=== PATIENT | female | born 1975 | race African-American/Black ===

== ENCOUNTER 2017-11-16 08:08 | Emergency (ER) | payer MEDICAID, OTHER ==
[~2017-11-16] VITALS: Ht 167.6 cm; Wt 78.0 kg
[2017-11-16 08:46] VITALS: BP 138/92
== END 2017-11-16 09:07 | disposition home or self-care (01) ==
LOC: ER 08:08
DX: I10 Essential (primary) hypertension (principal)

== ENCOUNTER 2018-06-22 15:31 | Emergency (ER) | payer MEDICAID ==
[~2018-06-22] VITALS: Ht 167.6 cm; Wt 81.6 kg
[2018-06-22 16:08] VITALS: BP 153/108
[2018-06-22] MEDS ORDERED: ACETAMINOPHEN 500 MG TAB PO ONE (17:15)
[2018-06-22] MEDS ORDERED: cefTRIAXone SOD 1,000 MG VL IM ONE (17:15)
== END 2018-06-22 17:53 | disposition home or self-care (01) ==
LOC: ER 15:33
DX: H66.92 Otitis media, unspecified, left ear (principal); J03.90 Acute tonsillitis, unspecified; I10 Essential (primary) hypertension
CPT/HCPCS: 71046; 96372; 99283; J0696

== ENCOUNTER 2018-06-25 16:20 | Emergency (ER) | payer MEDICAID ==
[~2018-06-25] VITALS: Ht 170.2 cm; Wt 81.6 kg
[2018-06-25 16:42] VITALS: BP 126/95
[2018-06-25 17:52] LABS: Urine Bacteria FEW /hpf (None Seen); Urine Blood 1+ /uL (Negative); Urine Hyaline Cast FEW /lpf (0 - 2); Urine Specific Gravity 1.015 (1.001-1.035); Urine WBC 2 /hpf (0 - 5)
[2018-06-25] MEDS ORDERED: ONDANSETRON ODT 4 MG TAB PO ONE (20:30)
[2018-06-25] MEDS ORDERED: IBUPROFEN 800 MG TAB PO ONE (22:00)
== END 2018-06-25 22:08 | disposition home or self-care (01) ==
LOC: ER 16:38
DX: J11.1 Influenza due to unidentified influenza virus with other respiratory manifestations (principal)
CPT/HCPCS: 71045; 81001; 81025; 99284; Q0162

== ENCOUNTER 2019-01-10 09:56 | Emergency (ER) | payer MEDICAID ==
[~2019-01-10] VITALS: Ht 167.6 cm; Wt 79.8 kg
[2019-01-10 10:20] VITALS: BP 154/111
[2019-01-10] MEDS ORDERED: KETOROLAC TROMETH 60MG/2ML VIAL IM ONE (11:00)
== END 2019-01-10 11:36 | disposition home or self-care (01) ==
LOC: ER 10:00
DX: S86.912A Strain of unspecified muscle(s) and tendon(s) at lower leg level, left leg, initial encounter (principal); I10 Essential (primary) hypertension; W19.XXXA Unspecified fall, initial encounter; Y93.89 Activity, other specified; Y92.89 Other specified places as the place of occurrence of the external cause; Y99.8 Other external cause status
CPT/HCPCS: 96372; 99283; J1885

== ENCOUNTER → 2020-01-24 | Outpatient (CLI) | payer OTHER | END | disposition home or self-care (01) | LOC: LAB 12:21 | PROVIDERS: ATTEND Nurse Practitioner Family | DX: Z03.818 Encounter for observation for suspected exposure to other biological agents ruled out (principal) ==

== ENCOUNTER → 2020-06-07 | Outpatient (CLI) | payer OTHER | END | disposition home or self-care (01) | LOC: LAB 11:44 | PROVIDERS: ATTEND Nurse Practitioner Family | DX: Z20.828 Contact with and (suspected) exposure to other viral communicable diseases (principal) | CPT/HCPCS: C9803; U0003 ==

== ENCOUNTER → 2020-06-18 | Outpatient (CLI) | payer OTHER | END | disposition home or self-care (01) | LOC: LAB 16:55 | PROVIDERS: ATTEND Nurse Practitioner Family | DX: Z20.828 Contact with and (suspected) exposure to other viral communicable diseases (principal) | CPT/HCPCS: C9803; U0003 ==

== ENCOUNTER 2021-03-13 00:30 | Inpatient (IN) | payer BC, OTHER ==
[2021-03-13] VITALS (63 sets, daily range): BP systolic 108–193; BP diastolic 75–180
[~2021-03-13] VITALS: Ht 172.7 cm; Wt 78.9 kg
[2021-03-13] MEDS ORDERED: SUCCINYLCHOLINE CHLORIDE 20 MG/ML 10ML VIAL IV ONE (01:15)
[2021-03-13] MEDS ORDERED: ETOMIDATE (2MG/ML) 20ML VIAL IV ONE (01:15)
[2021-03-13 01:26] LABS: Eosinophils # (auto) 0 10 ^3/uL (0-0.8); Lymphocytes # (auto) 2.3 10 ^3/uL (0.4-5.4); Lymphocytes % (auto) 32.6 % (10.0-50.0); Monocytes # (auto) 0.5 10 ^3/uL (0-1.3)
[2021-03-13 01:28] LABS: Basophils # (auto) 0 10 ^3/uL (0-0.2); Basophils % (auto) 0.4 % (0.0-2.0); Eosinophils % (auto) 0.3 % (0.0-7.0); Hematocrit 36.5 % (36.0-46.0); Hemoglobin 12.2 g/dL (12.2-16.2); Mean Corpuscular Hemoglobin 25.3 pg (28.0-32.0); Mean Corpuscular Hgb Conc. 33.6 g/dL (32.0-36.0); Mean Corpuscular Volume 75.4 fL (80.0-100.0); Monocytes % (auto) 6.5 % (0.0-12.0); Neutrophils # (auto) 4.2 10 ^3/uL (1.6-8.6); Neutrophils % (auto) 60.2 % (37.0-80.0); Nucleated Red Blood Cells % 0.1 %; Red Blood Cells 4.84 10^6/uL (4.0-5.20); Red Cell Distribution Width 17.9 % (11.8-14.3)
[2021-03-13] MEDS: PROPOFOL 100 ML IV SCH ×4 (01:38→20:54)
[2021-03-13 01:44] LABS: Albumin 3.7 g/dL (3.4-5.0); Calcium 9.1 mg/dL (8.5-10.1); Magnesium 2.6 mg/dL (1.6-2.6); Potassium 3.4 mmol/L (3.5-5.1)
[2021-03-13 01:46] LABS: BUN/Creatinine Ratio 17.8
[2021-03-13 01:49] LABS: Bilirubin, Total 0.2 mg/dL (0.2-1.0); Total Protein 8.2 g/dL (6.4-8.2)
[2021-03-13 01:50] LABS: Salicylate < 1.7 mg/dL (2.8-20.0)
[2021-03-13 01:54] LABS: Acetaminophen < 2.0 ug/mL (10-30)
[2021-03-13] MEDS ORDERED: ACETAMINOPHEN 650 MG RECT SUPP PR PRN (03:30)
[2021-03-13] MEDS ORDERED: D5W/SOD CHL 0.45% 1,000 ML IV SCH (03:30)
[2021-03-13] MEDS ORDERED: MORPHINE SULFATE INJECTION 2 MG/ML SYRG IV PRN (03:30)
[2021-03-13] MEDS ORDERED: ONDANSETRON HCL 4 MG/2 ML VIAL IV PRN (03:30)
[2021-03-13] MEDS ORDERED: NITROGLYCERIN 0.4 MG SL TAB SL PRN (03:30)
[2021-03-13] MEDS ORDERED: POTASSIUM CHL 20MEQ/100ML 100 ML IV ONE (03:30)
[2021-03-13] MEDS ORDERED: MIDAZOLAM DRIP 50 mg/50mL 50 ML IV ONE (05:18)
[2021-03-13] MEDS ORDERED: THIAMINE 100mg/ml INJ (200mg/2ml VIAL) ONE (05:29)
[2021-03-13] MEDS: MIDAZOLAM DRIP 50 mg/50mL 50 ML IV SCH ×2 (07:22→22:20)
[2021-03-13 07:43] LABS: Urine Bacteria NONE SEEN /hpf (None Seen); Urine Blood Negative /uL (Negative); Urine Mucus FEW (None Seen); Urine Specific Gravity 1.017 (1.001-1.035); Urine WBC 2 /hpf (0 - 5)
[2021-03-13 07:43] LABS: Basophils # (auto) 0 10 ^3/uL (0-0.2); Eosinophils # (auto) 0 10 ^3/uL (0-0.8); Monocytes # (auto) 0.9 10 ^3/uL (0-1.3)
[2021-03-13 07:45] LABS: Basophils % (auto) 0.3 % (0.0-2.0); Hematocrit 34.1 % (36.0-46.0); Hemoglobin 11.2 g/dL (12.2-16.2); Lymphocytes # (auto) 0.9 10 ^3/uL (0.4-5.4); Lymphocytes % (auto) 6.9 % (10.0-50.0); Mean Corpuscular Hemoglobin 24.6 pg (28.0-32.0); Mean Corpuscular Hgb Conc. 32.8 g/dL (32.0-36.0); Mean Corpuscular Volume 75.1 fL (80.0-100.0); Monocytes % (auto) 7.1 % (0.0-12.0); Neutrophils # (auto) 10.7 10 ^3/uL (1.6-8.6); Neutrophils % (auto) 85.7 % (37.0-80.0); Red Blood Cells 4.53 10^6/uL (4.0-5.20); Red Cell Distribution Width 17.8 % (11.8-14.3); White Blood Cell 12.4 10^3/uL (4.4-10.8)
[2021-03-13 07:55] LABS: Albumin 3.2 g/dL (3.4-5.0); BUN/Creatinine Ratio 21.8; Calcium 8.3 mg/dL (8.5-10.1)
[2021-03-13 07:58] LABS: Bilirubin, Total 0.2 mg/dL (0.2-1.0); Total Protein 7.3 g/dL (6.4-8.2)
[2021-03-13 08:57] LABS: Alcohol, Urine 46.5 mg/dL (0-10); Barbiturate Scree,Urine NEGATIVE (NEGATIVE); Opiate Scree,Urine NEGATIVE (NEGATIVE); Phencyclidine Screen, Urine NEGATIVE (NEGATIVE)
[2021-03-13 08:58] LABS: Amphetamine Screen, Urine NEGATIVE (NEGATIVE); Benzodiazephine Screen, Urine POSITIVE (NEGATIVE); Cannabinoid Screen, Urine POSITIVE (NEGATIVE); Cocaine Screen, Urine NEGATIVE (NEGATIVE)
[2021-03-13] MEDS: FAMOTIDINE (10MG/ML) 2ML VL IV SCH ×2 (09:19→22:22)
[2021-03-13] MEDS: ENOXAPARIN SOD 40 MG/0.4 ML SYRINGE SC SCH (09:19)
[2021-03-13] MEDS ORDERED: Jevity 1.2 Cal/Fiber 1 Liter GT SCH (12:45)
[2021-03-13] MEDS: SODIUM CHLORIDE 0.9% 1,000 ML IV SCH ×2 (13:50→23:30)
[2021-03-13] MEDS: FOLIC ACID 1 MG, MULTIPLE VITAMIN 10 ML, MAGNESIUM SULF SDV 50% 8 MEQ, THIAMINE INJ 100... INJ SCH ×5 (15:34)
[2021-03-13] MEDS ORDERED: SODIUM BICARBONATE 8.4 % INJ 50ML VIAL IV ONE (21:45)
[2021-03-13] MEDS: hydrALAZINE HCL 20 MG/ML VL IV PRN (23:50)
[2021-03-14] VITALS (106 sets, daily range): BP systolic 125–176; BP diastolic 64–120
[2021-03-14] MEDS: PROPOFOL 100 ML IV SCH ×2 (03:46→10:05)
[2021-03-14 04:32] LABS: Basophils # (auto) 0 10 ^3/uL (0-0.2); Basophils % (auto) 0.3 % (0.0-2.0); Eosinophils # (auto) 0 10 ^3/uL (0-0.8); Hemoglobin 10.8 g/dL (12.2-16.2); Lymphocytes # (auto) 1.2 10 ^3/uL (0.4-5.4); Mean Corpuscular Hemoglobin 24.9 pg (28.0-32.0); Mean Corpuscular Hgb Conc. 32.3 g/dL (32.0-36.0); Monocytes # (auto) 0.8 10 ^3/uL (0-1.3)
[2021-03-14] MEDS: MIDAZOLAM DRIP 50 mg/50mL 50 ML IV SCH ×2 (04:33→10:06)
[2021-03-14 04:34] LABS: Eosinophils % (auto) 0.2 % (0.0-7.0); Hematocrit 33.6 % (36.0-46.0); Lymphocytes % (auto) 13.8 % (10.0-50.0); Mean Corpuscular Volume 77.2 fL (80.0-100.0); Monocytes % (auto) 9.3 % (0.0-12.0); Neutrophils # (auto) 6.8 10 ^3/uL (1.6-8.6); Neutrophils % (auto) 76.4 % (37.0-80.0); Nucleated Red Blood Cells % 0.1 %; Red Blood Cells 4.35 10^6/uL (4.0-5.20); Red Cell Distribution Width 18.7 % (11.8-14.3); White Blood Cell 8.9 10^3/uL (4.4-10.8)
[2021-03-14 04:54] LABS: Potassium 3.9 mmol/L (3.5-5.1)
[2021-03-14 04:58] LABS: Albumin 2.8 g/dL (3.4-5.0); BUN/Creatinine Ratio 15.1; Calcium 8.9 mg/dL (8.5-10.1)
[2021-03-14] MEDS ORDERED: LABETALOL HCL 5 MG/ML 4ML SYRINGE IV ONE (05:00)
[2021-03-14 05:01] LABS: Bilirubin, Total 0.2 mg/dL (0.2-1.0)
[2021-03-14] MEDS ORDERED: LISI40TA11 PO (07:17)
[2021-03-14] MEDS ORDERED: HYDR25TA5 GT (07:18)
[2021-03-14] MEDS: hydrALAZINE HCL 20 MG/ML VL IV PRN (07:39)
[2021-03-14] MEDS: SODIUM CHLORIDE 0.9% 1,000 ML IV SCH ×2 (08:45→10:45)
[2021-03-14] MEDS: ENOXAPARIN SOD 40 MG/0.4 ML SYRINGE SC SCH (10:06)
[2021-03-14] MEDS: FAMOTIDINE (10MG/ML) 2ML VL IV SCH ×2 (10:06→21:16)
[2021-03-14] MEDS ORDERED: POTASSIUM EFFERVESENT TAB 25 MEQ GT ONE (10:45)
[2021-03-14] MEDS: FOLIC ACID 1 MG, MULTIPLE VITAMIN 10 ML, MAGNESIUM SULF SDV 50% 8 MEQ, THIAMINE INJ 100... INJ SCH ×5 (11:18)
[2021-03-15] VITALS (50 sets, daily range): BP systolic 128–179; BP diastolic 84–120
[2021-03-15] MEDS: MIDAZOLAM DRIP 50 mg/50mL 50 ML IV SCH (00:21)
[2021-03-15] MEDS: hydrALAZINE HCL 20 MG/ML VL IV PRN ×2 (00:22→14:57)
[2021-03-15] MEDS: SODIUM CHLORIDE 0.9% 1,000 ML IV SCH (06:45)
[2021-03-15] MEDS ORDERED: FUROSEMIDE 40 MG/4 ML VIAL IV ONE (08:30)
[2021-03-15] MEDS ORDERED: LABETALOL HCL 5 MG/ML 4ML SYRINGE IV ONE (08:30)
[2021-03-15] MEDS: ENOXAPARIN SOD 40 MG/0.4 ML SYRINGE SC SCH (09:49)
[2021-03-15] MEDS: FAMOTIDINE (10MG/ML) 2ML VL IV SCH (09:49)
[2021-03-15] MEDS: ACETAMINOPHEN 650 mg PER 20.3 mL UD PO PRN (14:21)
[2021-03-15] MEDS: HYDROcodone-ACET 5/325MG TAB PO PRN (16:13)
[2021-03-15] MEDS ORDERED: SUMAtriptan SUCCINATE 25 MG TAB PO ONE (20:45)
[2021-03-16] VITALS (11 sets, daily range): BP systolic 138–168; BP diastolic 94–120
[2021-03-16] MEDS: hydrALAZINE HCL 20 MG/ML VL IV PRN ×2 (00:20→16:46)
[2021-03-16] MEDS: HYDROcodone-ACET 5/325MG TAB PO PRN ×2 (04:09→18:31)
[2021-03-16 04:36] LABS: Basophils # (auto) 0 10 ^3/uL (0-0.2); Eosinophils # (auto) 0.1 10 ^3/uL (0-0.8); Hematocrit 35.6 % (36.0-46.0); Lymphocytes # (auto) 1.1 10 ^3/uL (0.4-5.4); Monocytes # (auto) 0.5 10 ^3/uL (0-1.3)
[2021-03-16 04:40] LABS: Basophils % (auto) 0.5 % (0.0-2.0); Eosinophils % (auto) 0.7 % (0.0-7.0); Hemoglobin 12.1 g/dL (12.2-16.2); Lymphocytes % (auto) 12.4 % (10.0-50.0); Mean Corpuscular Hemoglobin 25.8 pg (28.0-32.0); Mean Corpuscular Hgb Conc. 33.9 g/dL (32.0-36.0); Mean Corpuscular Volume 76.2 fL (80.0-100.0); Monocytes % (auto) 6.3 % (0.0-12.0); Neutrophils % (auto) 80.1 % (37.0-80.0); Red Blood Cells 4.67 10^6/uL (4.0-5.20); Red Cell Distribution Width 17.8 % (11.8-14.3); White Blood Cell 8.7 10^3/uL (4.4-10.8)
[2021-03-16 04:43] LABS: Calcium 9.8 mg/dL (8.5-10.1); Potassium 3.6 mmol/L (3.5-5.1)
[2021-03-16 04:45] LABS: BUN/Creatinine Ratio 15.5
[2021-03-16] MEDS ORDERED: guaiFENesin-DM 100/10mg/5ml SYR PO PRN (05:15)
[2021-03-16] MEDS ORDERED: dilTIAZem 25 MG/5 ML VIAL IV ONE (05:15)
[2021-03-16] MEDS ORDERED: LORazepam 0.5 MG TAB PO PRN (08:30)
[2021-03-16] MEDS: ENOXAPARIN SOD 40 MG/0.4 ML SYRINGE SC SCH (09:03)
[2021-03-16] MEDS: LISINOPRIL 20 MG TAB PO SCH (09:03)
[2021-03-16] MEDS: ACETAMINOPHEN 650 mg PER 20.3 mL UD PO PRN (09:04)
[2021-03-16] MEDS ORDERED: ATENOLOL 50 MG TAB PO SCH (10:00)
[2021-03-16] MEDS ORDERED: HCTZ 25 MG TAB PO SCH ×2 (10:00→22:00)
[2021-03-16] MEDS: ATENOLOL 25 MG TAB PO SCH ×2 (22:00→23:16)
[2021-03-17 05:00] VITALS: BP 136/95
[2021-03-17 06:51] LABS: Potassium 3.4 mmol/L (3.5-5.1)
[2021-03-17 06:57] LABS: BUN/Creatinine Ratio 22.1; Calcium 10.3 mg/dL (8.5-10.1)
[2021-03-17] MEDS: LISINOPRIL 20 MG TAB PO SCH (08:29)
[2021-03-17 09:00] VITALS: BP 149/104
[2021-03-17] MEDS: ENOXAPARIN SOD 40 MG/0.4 ML SYRINGE SC SCH (09:51)
[2021-03-17] MEDS ORDERED: ATENOLOL 25 MG TAB PO SCH ×2 (10:00)
[2021-03-17] MEDS ORDERED: amLODIPine BESYLATE 5 MG TAB PO SCH (10:00)
[2021-03-17] MEDS ORDERED: AMLO-496 PO (11:34)
[2021-03-17 12:52] VITALS: BP 145/104
[2021-03-17] MEDS ORDERED: ATEN25TA PO (16:13)
[2021-03-17] MEDS ORDERED: MULT-1018 PO (16:16)
[2021-03-17 16:30] VITALS: BP 149/104
== END 2021-03-17 17:00 | disposition home or self-care (01) | DRG 917 ==
LOC: EEVIPCON 00:30 → EDBD 00:30 → ER 00:30 → OVERFLOW 03:17 → ICU WEST 10:51 → TELE-CENTR 03-16 06:50
PROVIDERS: ADMIT Nurse Practitioner Family; ATTEND Internal Medicine
PROC: 5A1945Z Respiratory Ventilation, 24-96 Consecutive Hours (ICD-10-PCS; principal; 2021-03-13)
PROC: 0BH17EZ Insertion of Endotracheal Airway into Trachea, Via Natural or Artificial Opening (ICD-10-PCS; 2021-03-13)
DX: T43.012A Poisoning by tricyclic antidepressants, intentional self-harm, initial encounter (principal); G92 Toxic encephalopathy; J96.00 Acute respiratory failure, unspecified whether with hypoxia or hypercapnia; Z99.11 Dependence on respirator [ventilator] status; Z20.822 Contact with and (suspected) exposure to COVID-19; D50.9 Iron deficiency anemia, unspecified; F10.129 Alcohol abuse with intoxication, unspecified; F32.9 Major depressive disorder, single episode, unspecified; I10 Essential (primary) hypertension; F41.9 Anxiety disorder, unspecified; Z79.899 Other long term (current) drug therapy; Y92.89 Other specified places as the place of occurrence of the external cause
CPT/HCPCS: 31500; 36415; 36600; 71045; 80048; 80053; 80307; 80320; 80329; 81001; 82805; 83036; 83735; 84702; 85025; 87070; 87081; 87205; 87426; 93005; 93975; 94002; 94003; 99291; G0378; J0330; J2250; J2704; J3480; J3490

== ENCOUNTER 2022-06-18 23:48 | Inpatient (IN) | payer BC ==
[~2022-06-18] VITALS: Ht 167.6 cm; Wt 80.6 kg
[~2022-06-18 23:48] MED LIST: AMLO-496 PO; ATEN25TA PO; HYDR25TA5 GT; LISI40TA11 PO; MULT-1018 PO
[2022-06-19 04:44] LABS: Urine Blood Negative /uL (Negative); Urine Specific Gravity 1.008 (1.001-1.035)
[2022-06-19] MEDS ORDERED: ACETAMINOPHEN 325 MG TAB PO ONE (10:00)
[2022-06-19] MEDS ORDERED: SODIUM CHLORIDE 0.9% 1,000 ML IV ONE (10:00)
[2022-06-19 10:32] LABS: Basophils # (auto) 0 10 ^3/uL (0-0.2); Basophils % (auto) 0.5 % (0.0-2.0); Eosinophils # (auto) 0 10 ^3/uL (0-0.8); Hematocrit 36.1 % (36.0-46.0); Lymphocytes # (auto) 1.5 10 ^3/uL (0.4-5.4); Neutrophils # (auto) 3.5 10 ^3/uL (1.6-8.6); Neutrophils % (auto) 59.5 % (37.0-80.0); White Blood Cell 5.9 10^3/uL (4.4-10.8)
[2022-06-19 10:34] LABS: Eosinophils % (auto) 0.3 % (0.0-7.0); Hemoglobin 11.8 g/dL (12.2-16.2); Lymphocytes % (auto) 25.3 % (10.0-50.0); Mean Corpuscular Hemoglobin 22.6 pg (28.0-32.0); Mean Corpuscular Hgb Conc. 32.6 g/dL (32.0-36.0); Mean Corpuscular Volume 69.5 fL (80.0-100.0); Monocytes # (auto) 0.8 10 ^3/uL (0-1.3); Monocytes % (auto) 14.4 % (0.0-12.0); Nucleated Red Blood Cells % 0.2 %; Red Cell Distribution Width 17.1 % (11.8-14.3)
[2022-06-19 10:53] LABS: Albumin 3.8 g/dL (3.4-5.0); Calcium 9.6 mg/dL (8.5-10.1); Magnesium 2.7 mg/dL (1.6-2.6); Potassium 4.1 mmol/L (3.5-5.1)
[2022-06-19 10:57] LABS: BUN/Creatinine Ratio 16.8; Bilirubin, Total 0.6 mg/dL (0.2-1.0); Total Protein 8.2 g/dL (6.4-8.2)
[2022-06-19] MEDS ORDERED: ASPirin 81 mg TAB PO ONE (17:15)
[2022-06-19] MEDS ORDERED: ACETAMINOPHEN 325 MG TAB PO PRN (18:00)
[2022-06-19] MEDS ORDERED: TEMAZEPAM 15 MG CAP PO PRN (18:00)
[2022-06-19] MEDS ORDERED: MORPHINE SULFATE INJ 2 MG/ml SYRG IV PRN (18:00)
[2022-06-19] MEDS ORDERED: ONDANSETRON HCL 4 MG/2 ML VIAL IV PRN (18:00)
[2022-06-19] MEDS ORDERED: NITROGLYCERIN 0.4 MG SL TAB SL PRN (18:00)
[2022-06-19] MEDS: ATENOLOL 25 MG TAB PO SCH (22:00)
[2022-06-20 05:54] LABS: Basophils # (auto) 0 10 ^3/uL (0-0.2); Basophils % (auto) 0.7 % (0.0-2.0); Eosinophils # (auto) 0 10 ^3/uL (0-0.8); Eosinophils % (auto) 0.3 % (0.0-7.0); Hemoglobin 10.6 g/dL (12.2-16.2); Lymphocytes # (auto) 1.1 10 ^3/uL (0.4-5.4); Lymphocytes % (auto) 23.8 % (10.0-50.0); Mean Corpuscular Hemoglobin 22.7 pg (28.0-32.0); Mean Corpuscular Volume 68.6 fL (80.0-100.0); Monocytes # (auto) 0.5 10 ^3/uL (0-1.3); Monocytes % (auto) 10.8 % (0.0-12.0); Neutrophils # (auto) 2.9 10 ^3/uL (1.6-8.6); Neutrophils % (auto) 64.4 % (37.0-80.0); Red Blood Cells 4.67 10^6/uL (4.0-5.20); White Blood Cell 4.5 10^3/uL (4.4-10.8)
[2022-06-20 05:58] LABS: BUN/Creatinine Ratio 19.5; Calcium 9.1 mg/dL (8.5-10.1); Potassium 3.8 mmol/L (3.5-5.1)
[2022-06-20] MEDS: ATENOLOL 25 MG TAB PO SCH ×2 (06:27→10:49)
[2022-06-20 09:18] VITALS: BP 127/94
[2022-06-20] MEDS ORDERED: HCTZ 25 MG TAB PO SCH (10:00)
[2022-06-20] MEDS ORDERED: ENOXAPARIN SOD 40 MG/0.4 ML SYRINGE SC SCH (10:00)
[2022-06-20] MEDS ORDERED: amLODIPine BESYLATE 5 MG TAB PO SCH (10:00)
[2022-06-20] MEDS ORDERED: ASPirin 81 mg TAB PO SCH (10:00)
[2022-06-20 10:01] VITALS: BP 127/94
[2022-06-20 12:42] VITALS: BP 129/91
[2022-06-20 13:09] LABS: Free T4 (Free Thyroxine) 1.13 ng/dL (0.89-1.76)
[2022-06-20] MEDS ORDERED: MULT-1018 PO (13:17)
[2022-06-20 14:10] VITALS: BP 127/94
== END 2022-06-20 16:26 | disposition home or self-care (01) | DRG 312 ==
LOC: ER 23:48 → TELE 06-19 17:54 → TELE-WESTW 06-20 09:14
PROVIDERS: ADMIT Nurse Practitioner; ATTEND Internal Medicine
DX: R55 Syncope and collapse (principal); B34.9 Viral infection, unspecified; E11.9 Type 2 diabetes mellitus without complications; I10 Essential (primary) hypertension; R07.89 Other chest pain; Z20.822 Contact with and (suspected) exposure to COVID-19; Z80.0 Family history of malignant neoplasm of digestive organs; Z83.3 Family history of diabetes mellitus
CPT/HCPCS: 36415; 71046; 71275; 80048; 80053; 81001; 81025; 82607; 83735; 84439; 84443; 84484; 85025; 85379; 87426; 87804; 93005; 93306; 93886; 96360; G0378

== ENCOUNTER 2022-06-26 08:00 | Emergency (ER) | payer BC, MEDICAID ==
[~2022-06-26] VITALS: Ht 167.6 cm; Wt 72.0 kg
[2022-06-26 08:21] VITALS: BP 170/126
[2022-06-26] MEDS ORDERED: ACETAMINOPHEN 325 MG TAB PO ONE (09:00)
[2022-06-26] MEDS ORDERED: diphenhdrAMINE HCL 50 MG/1 ML VL IV ONE (09:00)
[2022-06-26] MEDS ORDERED: METOCLOPRAMIDE HCL 5MG/ml INJ 2ml VIAL IV ONE (09:00)
[2022-06-26] MEDS ORDERED: DexAMETHasone SOD PHOS 10MG/1ML VIAL INJ IV ONE (09:00)
[2022-06-26] MEDS ORDERED: MAGNESIUM SULFATE 1GM/100ML 100 ML IV ONE (09:00)
[2022-06-26] MEDS ORDERED: HYDROcodone-ACET 5/325MG TAB PO ONE (14:00)
[2022-06-26] MEDS ORDERED: KETOROLAC TROMETH 30 MG/ML 1ML VIAL IV ONE (14:00)
[2022-06-26] MEDS ORDERED: SUMAtriptan SUCCINATE 6 MG/0.5 ML VL SC ONE (14:00)
[2022-06-26] MEDS ORDERED: LISINOPRIL 20 MG TAB PO ONE (14:00)
[2022-06-26] MEDS ORDERED: amLODIPine BESYLATE 5 MG TAB PO ONE (14:00)
[2022-06-26] MEDS ORDERED: SODIUM CHLORIDE 0.9% 1,000 ML IV ONE (14:00)
== END 2022-06-26 17:39 | disposition home or self-care (01) ==
LOC: EDBD 08:00 → EEVIPCON 08:00 → ER 08:00
DX: G43.909 Migraine, unspecified, not intractable, without status migrainosus (principal); I10 Essential (primary) hypertension
CPT/HCPCS: 70450; 81025; 93005; 96365; 96375; 99285; J1100; J1200; J2765; J3475

== ENCOUNTER 2023-03-13 11:46 | Inpatient (IN) | payer BC, MEDICAID ==
[~2023-03-13] VITALS: Ht 167.6 cm; Wt 85.4 kg
[~2023-03-13 11:46] MED LIST changes: -AMLO-496 PO; +AMLO1TAB23 PO; -LISI40TA11 PO; +LISI40TA16 PO
[2023-03-13 12:08] LABS: Basophils # (auto) 0 10 ^3/uL (0-0.2); Basophils % (auto) 0.3 % (0.0-2.0); Eosinophils # (auto) 0 10 ^3/uL (0-0.8); Lymphocytes # (auto) 0.7 10 ^3/uL (0.4-5.4); Lymphocytes % (auto) 8.9 % (10.0-50.0); Mean Corpuscular Hgb Conc. 32.3 g/dL (32.0-36.0); Monocytes # (auto) 0.6 10 ^3/uL (0-1.3)
[2023-03-13 12:11] LABS: Eosinophils % (auto) 0.1 % (0.0-7.0); Hematocrit 36.5 % (36.0-46.0); Hemoglobin 11.8 g/dL (12.2-16.2); Mean Corpuscular Hemoglobin 21.7 pg (28.0-32.0); Mean Corpuscular Volume 67.4 fL (80.0-100.0); Monocytes % (auto) 8.1 % (0.0-12.0); Neutrophils # (auto) 6.3 10 ^3/uL (1.6-8.6); Neutrophils % (auto) 82.6 % (37.0-80.0); Red Blood Cells 5.42 10^6/uL (4.0-5.20); White Blood Cell 7.6 10^3/uL (4.4-10.8)
[2023-03-13] MEDS ORDERED: ASPirin 81 mg TAB PO ONE ×2 (12:15→13:30)
[2023-03-13 12:30] LABS: INR 1.05 (0.9-1.15); Partial Thromboplastin Time 30.2 SEC (24.5-34.5)
[2023-03-13 12:43] LABS: Urine Bacteria FEW /hpf (None Seen); Urine Blood 3+ /uL (Negative); Urine Clarity HAZY (Clear); Urine Color PINK (Yellow); Urine Hyaline Cast MOD /lpf (0 - 2); Urine Mucus FEW (None Seen); Urine Protein, UAD 2+ (Negative); Urine Specific Gravity 1.027 (1.001-1.035); Urine WBC 30 /hpf (0 - 5)
[2023-03-13 12:54] LABS: Alanine Aminotransferase 54 U/L (7-40); Alkaline Phosphatase 105 U/L (46-116); Anion Gap 10.2 (5-15); Blood Urea Nitrogen 20 mg/dL (9-23); Calcium 9.6 mg/dL (8.5-10.1); Carbon Dioxide 22.8 mmol/L (20-30); Chloride 102 mmol/L (98-107); Glucose 95 mg/dL (74-106); Magnesium 2.2 mg/dL (1.6-2.6); Potassium 3.2 mmol/L (3.5-5.1); Sodium 135 mmol/L (136-145)
[2023-03-13 12:55] LABS: Albumin 4.5 g/dL (3.2-4.8); Aspartate Aminotransferase 54 U/L (13-40); BUN/Creatinine Ratio 13.7 (10.0-20.0); Bilirubin, Total 0.8 mg/dL (0.2-1.0); Total Protein 8.1 g/dL (5.7-8.2)
[2023-03-13 12:57] LABS: Platelet Estimate Adequate
[2023-03-13 12:58] LABS: Anisocytosis Slight; Hypochromia Slight; Ovalocytes FEW
[2023-03-13 13:30] VITALS: PULSE 111; RESP 22; O2SAT 99
[2023-03-13] MEDS ORDERED: HEPARIN DRIP/D5W 100UNITS/ML 250 ML IV SCH ×2 (13:30→22:30)
[2023-03-13] MEDS ORDERED: HEPARIN SODIUM (PORCINE) 5000 UNITS/ML 1ML VIAL IV ONE ×3 (13:30→22:15)
[2023-03-13] MEDS ORDERED: NITROGLYCERIN 0.4 MG SL TAB SL PRN ×2 (13:30→14:00)
[2023-03-13] MEDS ORDERED: CLOPIDOGREL 300 MG TAB PO ONE (13:30)
[2023-03-13] MEDS ORDERED: METOPROLOL TARTRATE 25 MG TAB PO ONE ×2 (13:30→14:15)
[2023-03-13] MEDS ORDERED: SODIUM CHLORIDE 0.9% 1,000 ML IV ONE (13:30)
[2023-03-13] MEDS ORDERED: POTASSIUM EFFERVESENT TAB 25 MEQ PO ONE ×2 (13:30→14:00)
[2023-03-13] MEDS ORDERED: MORPHINE SULFATE INJ 2 MG/ml SYRG IV PRN ×2 (13:30→14:00)
[2023-03-13] MEDS ORDERED: IOHEXOL 350 MG/ML 100ML IJ ONE (13:41)
[2023-03-13] MEDS: SODIUM CHLORIDE 0.9% 1,000 ML IV SCH ×2 (14:00→14:57)
[2023-03-13] MEDS ORDERED: PANTOPRAZOLE 40 MG/10 ML VIAL INJ IV ONE (14:00)
[2023-03-13 14:17] LABS: Amphetamine Screen, Urine Neg (NEGATIVE); Barbiturate Scree,Urine Neg (NEGATIVE); Benzodiazephine Screen, Urine Neg (NEGATIVE); Cocaine Screen, Urine Neg (NEGATIVE); Opiate Scree,Urine Neg (NEGATIVE); Phencyclidine Screen, Urine Neg (NEGATIVE)
[2023-03-13 14:18] LABS: Cannabinoid Screen, Urine Pos (NEGATIVE)
[2023-03-13 14:23] LABS: Triglycerides 139 mg/dL (< 150)
[2023-03-13 14:24] LABS: LDL Cholesterol 65 mg/dL (< 100)
[2023-03-13 14:25] LABS: Cholesterol 121 mg/dL (< 200); HDL Cholesterol 27 mg/dL (40-59)
[2023-03-13 15:34] LABS: COVID19 ANTIGEN SOFIA FIA NEGATIVE (NEGATIVE)
[2023-03-13] MEDS: ACETAMINOPHEN 325 MG TAB PO PRN ×2 (16:37→23:27)
[2023-03-13 19:25] VITALS: PULSE 105; RESP 22; O2SAT 100
[2023-03-13] MEDS ORDERED: TEMAZEPAM 15 MG CAP PO ONE (20:45)
[2023-03-13] MEDS: METOPROLOL TARTRATE 25 MG TAB PO SCH (21:26)
[2023-03-13] MEDS: ATORVASTATIN 20 MG TAB PO SCH (21:27)
[2023-03-13] MEDS ORDERED: METOPROLOL TARTRATE 25 MG TAB PO SCH (22:00)
[2023-03-13 22:01] LABS: INR 1.07 (0.9-1.15); Partial Thromboplastin Time 31.8 SEC (24.5-34.5); Prothrombin Time 11.2 sec (9.3-11.8)
[2023-03-14] VITALS (13 sets, daily range): BP systolic 106–154; BP diastolic 65–95; PULSE 78–108; RESP 16–22; TEMP 97.6–100.2; O2SAT 96–100
[2023-03-14] MEDS: SODIUM CHLORIDE 0.9% 1,000 ML IV SCH ×2 (03:20→18:55)
[2023-03-14] MEDS: ACETAMINOPHEN 325 MG TAB PO PRN ×2 (05:57→21:40)
[2023-03-14 06:24] LABS: Alanine Aminotransferase 48 U/L (7-40); Albumin 4.1 g/dL (3.2-4.8); Alkaline Phosphatase 95 U/L (46-116); Anion Gap 8.7 (5-15); Aspartate Aminotransferase 54 U/L (13-40); Blood Urea Nitrogen 13 mg/dL (9-23); Calcium 9.2 mg/dL (8.5-10.1); Carbon Dioxide 21.3 mmol/L (20-30); Chloride 102 mmol/L (98-107); Glucose 98 mg/dL (74-106); Potassium 3.2 mmol/L (3.5-5.1); Sodium 132 mmol/L (136-145)
[2023-03-14 06:25] LABS: Bilirubin, Total 0.8 mg/dL (0.2-1.0); Total Protein 7.7 g/dL (5.7-8.2)
[2023-03-14 06:30] LABS: Hemoglobin 11.3 g/dL (12.2-16.2); Red Blood Cells 5.14 10^6/uL (4.0-5.20)
[2023-03-14 06:32] LABS: Hematocrit 35.1 % (36.0-46.0); Mean Corpuscular Hgb Conc. 32.2 g/dL (32.0-36.0); Mean Corpuscular Volume 68.2 fL (80.0-100.0); Red Cell Distribution Width 18.2 % (11.8-14.3); White Blood Cell 5.8 10^3/uL (4.4-10.8)
[2023-03-14 06:34] LABS: INR 1.12 (0.9-1.15); Prothrombin Time 11.7 sec (9.3-11.8)
[2023-03-14 06:39] LABS: BUN/Creatinine Ratio 11.2 (10.0-20.0); Partial Thromboplastin Time 94.5 SEC (24.5-34.5)
[2023-03-14 06:54] LABS: Band Neutrophils % (manual) 0; Basophils % (manual) 0 (0.0-2.0); Blast Cells 0; Eosinophils % (manual) 0 (0-7); Metamyelocytes % 0; Myelocytes % 0; Promyelocytes % 0; Reactive Lymphocytes 0
[2023-03-14] MEDS ORDERED: POTASSIUM EFFERVESENT TAB 25 MEQ PO ONE (07:15)
[2023-03-14 07:24] LABS: Lymphocytes % (manual) 30 (10.0-50.0); Monocytes % (manual) 12 (0-12); Platelet Estimate Adequate
[2023-03-14] MEDS ORDERED: HEPARIN DRIP/D5W 100UNITS/ML 250 ML IV SCH (07:45)
[2023-03-14] MEDS: ASPirin 81 mg TAB PO SCH (09:05)
[2023-03-14] MEDS: METOPROLOL TARTRATE 25 MG TAB PO SCH ×2 (09:06→21:32)
[2023-03-14] MEDS: PANTOPRAZOLE 40 MG/10 ML VIAL INJ IV SCH (09:07)
[2023-03-14] MEDS ORDERED: LISINOPRIL 5 MG TAB PO SCH (10:00)
[2023-03-14] MEDS ORDERED: MORPHINE SULFATE INJ 2 MG/ml SYRG IM ONE (10:00)
[2023-03-14] MEDS ORDERED: MORPHINE SULFATE INJ 2 MG/ml SYRG IV ONE (10:15)
[2023-03-14] MEDS ORDERED: NITROGLYCERIN 0.2MG/HR TOPICAL PATCH TD ONE (10:45)
[2023-03-14] MEDS ORDERED: KETOROLAC TROMETH 30 MG/ML 1ML VIAL IV ONE (11:30)
[2023-03-14] MEDS ORDERED: MIDAZOLAM HCL 2MG/2ML 2ml VIAL (1mg/ml) ONE (13:24)
[2023-03-14] MEDS ORDERED: fentaNYL CITRATE 100 MCG/2 ML VL ONE (13:24)
[2023-03-14] MEDS ORDERED: VERAPAMIL 2.5MG/ML INJ 2ML VIAL IV ONE (13:24)
[2023-03-14] MEDS ORDERED: ANGIOMAX 250 MG VIAL IV ONE (13:24)
[2023-03-14] MEDS ORDERED: HEPARIN SODIUM (PORCINE) 5000 UNITS/ML 1ML VIAL ONE (13:24)
[2023-03-14] MEDS ORDERED: SODIUM CHL 0.9% 0 ML ONE (13:25)
[2023-03-14] MEDS ORDERED: IODIXANOL 320MG/ML 100ML BTL IV ONE ×2 (13:25→14:02)
[2023-03-14] MEDS ORDERED: LIDOCAINE 2%HCL (LOCAL ANESTH.) INJ 20ML MDV ONE (13:25)
[2023-03-14 15:01] LABS: INR 1.05 (0.9-1.15); Partial Thromboplastin Time 50.3 SEC (24.5-34.5)
[2023-03-14] MEDS: ATORVASTATIN 20 MG TAB PO SCH (21:31)
[2023-03-15] VITALS (7 sets, daily range): BP systolic 108–124; BP diastolic 69–85; PULSE 82–111; RESP 15–19; TEMP 98–100.5; O2SAT 94–100
[2023-03-15] MEDS: ACETAMINOPHEN 325 MG TAB PO PRN ×3 (05:07→21:25)
[2023-03-15] MEDS: SODIUM CHLORIDE 0.9% 1,000 ML IV SCH ×2 (05:10→13:18)
[2023-03-15 07:08] LABS: Anion Gap 6.5 (5-15); Carbon Dioxide 21.5 mmol/L (20-30); Chloride 104 mmol/L (98-107); Potassium 3.5 mmol/L (3.5-5.1); Sodium 132 mmol/L (136-145)
[2023-03-15 07:09] LABS: Calcium 8.8 mg/dL (8.5-10.1)
[2023-03-15 07:13] LABS: Glucose 100 mg/dL (74-106)
[2023-03-15 07:14] LABS: BUN/Creatinine Ratio 11.6 (10.0-20.0); Blood Urea Nitrogen 17 mg/dL (9-23)
[2023-03-15 07:26] LABS: Basophils # (auto) 0 10 ^3/uL (0-0.2); Eosinophils # (auto) 0 10 ^3/uL (0-0.8); Hemoglobin 10.2 g/dL (12.2-16.2); Lymphocytes # (auto) 0.7 10 ^3/uL (0.4-5.4); Monocytes # (auto) 0.3 10 ^3/uL (0-1.3); Nucleated Red Blood Cells % 0.1 %; Red Blood Cells 4.71 10^6/uL (4.0-5.20); White Blood Cell 3.5 10^3/uL (4.4-10.8)
[2023-03-15 07:30] LABS: Basophils % (auto) 0.6 % (0.0-2.0); Eosinophils % (auto) 0.1 % (0.0-7.0); Hematocrit 30.8 % (36.0-46.0); Lymphocytes % (auto) 20.3 % (10.0-50.0); Mean Corpuscular Hemoglobin 21.6 pg (28.0-32.0); Mean Corpuscular Hgb Conc. 32.9 g/dL (32.0-36.0); Mean Corpuscular Volume 65.5 fL (80.0-100.0); Neutrophils # (auto) 2.4 10 ^3/uL (1.6-8.6); Red Cell Distribution Width 18.3 % (11.8-14.3)
[2023-03-15] MEDS ORDERED: POTASSIUM CHL 20 Meq TABLET PO ONE (07:45)
[2023-03-15] MEDS ORDERED: MELATONIN 5 MG TAB PO ONE (08:30)
[2023-03-15] MEDS: METOPROLOL TARTRATE 25 MG TAB PO SCH ×2 (08:38→21:27)
[2023-03-15] MEDS: PANTOPRAZOLE 40 MG/10 ML VIAL INJ IV SCH (08:38)
[2023-03-15] MEDS: ASPirin 81 mg TAB PO SCH (08:39)
[2023-03-15] MEDS ORDERED: CLOPIDOGREL BISULFATE 75 MG TAB PO SCH (10:00)
[2023-03-15] MEDS ORDERED: LISINOPRIL 10 MG TAB PO SCH (10:00)
[2023-03-15 10:23] LABS: Hypochromia Moderate; Platelet Estimate Adequate
[2023-03-15] MEDS ORDERED: COLCHICINE 0.6 MG CAP PO ONE (12:00)
[2023-03-15] MEDS ORDERED: AZITHROMYCIN 500MG/ 250ML 250 ML IV ONE (12:00)
[2023-03-15] MEDS ORDERED: AZITHROMYCIN 500MG/ 250ML 250 ML IV SCH (13:00)
[2023-03-15] MEDS ORDERED: traMADol HCL 50 MG TAB PO ONE (18:30)
[2023-03-15] MEDS: ATORVASTATIN 20 MG TAB PO SCH (21:26)
[2023-03-16] MEDS: SODIUM CHLORIDE 0.9% 1,000 ML IV SCH (04:40)
[2023-03-16 05:00] VITALS: BP 132/92; PULSE 92; RESP 18; TEMP 92; O2SAT 100
[2023-03-16 06:11] LABS: Basophils # (auto) 0 10 ^3/uL (0-0.2); Basophils % (auto) 0.6 % (0.0-2.0); Eosinophils # (auto) 0 10 ^3/uL (0-0.8); Eosinophils % (auto) 0.2 % (0.0-7.0); Hematocrit 31.7 % (36.0-46.0); Hemoglobin 9.9 g/dL (12.2-16.2); Lymphocytes % (auto) 29.7 % (10.0-50.0); Mean Corpuscular Hemoglobin 21.1 pg (28.0-32.0); Mean Corpuscular Hgb Conc. 31.3 g/dL (32.0-36.0); Mean Corpuscular Volume 67.2 fL (80.0-100.0); Monocytes # (auto) 0.5 10 ^3/uL (0-1.3); Monocytes % (auto) 13.1 % (0.0-12.0); Neutrophils % (auto) 56.4 % (37.0-80.0); Nucleated Red Blood Cells % 0.2 %; Red Blood Cells 4.71 10^6/uL (4.0-5.20); Red Cell Distribution Width 18.7 % (11.8-14.3); White Blood Cell 3.5 10^3/uL (4.4-10.8)
[2023-03-16 06:26] LABS: Alanine Aminotransferase 40 U/L (7-40); Albumin 3.6 g/dL (3.2-4.8); Alkaline Phosphatase 88 U/L (46-116); Anion Gap 7.8 (5-15); Aspartate Aminotransferase 44 U/L (13-40); BUN/Creatinine Ratio 11.3 (10.0-20.0); Blood Urea Nitrogen 12 mg/dL (9-23); Calcium 8.8 mg/dL (8.7-10.4); Carbon Dioxide 21.2 mmol/L (20-30); Chloride 107 mmol/L (98-107); Glucose 90 mg/dL (74-106); Potassium 3.8 mmol/L (3.5-5.1); Sodium 136 mmol/L (136-145)
[2023-03-16 06:27] LABS: Bilirubin, Total 0.3 mg/dL (0.2-1.0); Total Protein 6.8 g/dL (5.7-8.2)
[2023-03-16 08:00] VITALS: PULSE 98
[2023-03-16] MEDS: PANTOPRAZOLE 40 MG/10 ML VIAL INJ IV SCH (08:32)
[2023-03-16] MEDS: COLCHICINE 0.6 MG CAP PO SCH (08:32)
[2023-03-16] MEDS: AZITHROMYCIN 500MG/ 250ML 250 ML IV SCH (08:32)
[2023-03-16] MEDS: METOPROLOL TARTRATE 25 MG TAB PO SCH ×2 (08:33→23:16)
[2023-03-16] MEDS: ASPirin 81 mg TAB PO SCH (08:33)
[2023-03-16] MEDS: ACETAMINOPHEN 325 MG TAB PO PRN ×2 (08:33→14:34)
[2023-03-16 09:00] VITALS: BP 137/95; PULSE 98; RESP 16; TEMP 99; O2SAT 99
[2023-03-16 13:00] VITALS: BP 116/87; PULSE 97; RESP 19; TEMP 97.8; O2SAT 99
[2023-03-16] MEDS ORDERED: cefTRIAXone 1GM/50ML D5W 50 ML IV ONE (16:00)
[2023-03-16] MEDS ORDERED: KETOROLAC TROMETH 30 MG/ML 1ML VIAL IV ONE (16:00)
[2023-03-16 16:54] LABS: Erythrocyte Sedimentation Rate 18 mm/hr (0-20)
[2023-03-16 20:00] VITALS: PULSE 111; PULSE 87; PULSE 97; RESP 17; RESP 18; O2SAT 100
[2023-03-16] MEDS: traMADol HCL 50 MG TAB PO PRN (20:30)
[2023-03-16] MEDS: ATORVASTATIN 20 MG TAB PO SCH (21:34)
[2023-03-16 22:00] VITALS: BP 150/112; PULSE 97; RESP 18; TEMP 98.2; O2SAT 100
[2023-03-17] VITALS (7 sets, daily range): BP systolic 126–151; BP diastolic 83–111; PULSE 80–97; RESP 17–20; TEMP 98–99; O2SAT 96–98
[2023-03-17] MEDS: ACETAMINOPHEN 325 MG TAB PO PRN (04:14)
[2023-03-17 06:41] LABS: Basophils # (auto) 0 10 ^3/uL (0-0.2); Eosinophils # (auto) 0 10 ^3/uL (0-0.8); Eosinophils % (auto) 0.2 % (0.0-7.0); Hemoglobin 9.9 g/dL (12.2-16.2); Lymphocytes # (auto) 0.8 10 ^3/uL (0.4-5.4); Monocytes # (auto) 0.3 10 ^3/uL (0-1.3)
[2023-03-17 06:44] LABS: Basophils % (auto) 0.4 % (0.0-2.0); Lymphocytes % (auto) 24.4 % (10.0-50.0); Mean Corpuscular Hemoglobin 21.1 pg (28.0-32.0); Mean Corpuscular Hgb Conc. 31.9 g/dL (32.0-36.0); Mean Corpuscular Volume 66.1 fL (80.0-100.0); Monocytes % (auto) 8.3 % (0.0-12.0); Neutrophils # (auto) 2.3 10 ^3/uL (1.6-8.6); Neutrophils % (auto) 66.7 % (37.0-80.0); Red Cell Distribution Width 18.6 % (11.8-14.3); White Blood Cell 3.4 10^3/uL (4.4-10.8)
[2023-03-17 08:30] LABS: Anion Gap 9.1 (5-15); Carbon Dioxide 20.9 mmol/L (20-30); Chloride 106 mmol/L (98-107); Potassium 3.8 mmol/L (3.5-5.1); Sodium 136 mmol/L (136-145)
[2023-03-17 08:36] LABS: BUN/Creatinine Ratio 11.7 (10.0-20.0); Blood Urea Nitrogen 11 mg/dL (9-23); Glucose 102 mg/dL (74-106)
[2023-03-17] MEDS: COLCHICINE 0.6 MG CAP PO SCH (09:15)
[2023-03-17] MEDS: traMADol HCL 50 MG TAB PO PRN ×2 (09:16→22:49)
[2023-03-17] MEDS: PANTOPRAZOLE 40 MG TAB PO SCH (09:16)
[2023-03-17] MEDS: ASPirin 81 mg TAB PO SCH (09:17)
[2023-03-17] MEDS: METOPROLOL TARTRATE 25 MG TAB PO SCH ×2 (09:17→22:50)
[2023-03-17] MEDS: AZITHROMYCIN 500MG/ 250ML 250 ML IV SCH (09:19)
[2023-03-17] MEDS: cefTRIAXone 1GM/50ML D5W 50 ML IV SCH (09:20)
[2023-03-17] MEDS: ONDANSETRON HCL 4 MG/2 ML VIAL IV PRN (11:07)
[2023-03-17 13:06] LABS: Anti-Centromere B Antibody <0.2 AI (0.0-0.9); Anti-Jo-1 Antibody <0.2 AI (0.0-0.9); Anti-dsDNA Antibody 1 IU/mL (0-9); Antiscleroderma-70 Antibody <0.2 AI (0.0-0.9); RNP Antibody 1.4 AI (0.0-0.9); Sjogren's Anti-SS-A Antibody >8.0 AI (0.0-0.9); Sjogren's Anti-SS-B Antibody <0.2 AI (0.0-0.9); Smith Antibody <0.2 AI (0.0-0.9)
[2023-03-17] MEDS ORDERED: predniSONE 20 MG TAB PO ONE (16:00)
[2023-03-17 18:20] LABS: Basophils # (auto) 0 10 ^3/uL (0-0.2); Basophils % (auto) 0.5 % (0.0-2.0); Eosinophils # (auto) 0 10 ^3/uL (0-0.8); Hemoglobin 10.2 g/dL (12.2-16.2); Neutrophils # (auto) 1.9 10 ^3/uL (1.6-8.6); White Blood Cell 3.4 10^3/uL (4.4-10.8)
[2023-03-17 18:23] LABS: Eosinophils % (auto) 0.5 % (0.0-7.0); Hematocrit 31.9 % (36.0-46.0); Lymphocytes % (auto) 29.8 % (10.0-50.0); Mean Corpuscular Hemoglobin 21.3 pg (28.0-32.0); Mean Corpuscular Hgb Conc. 32.1 g/dL (32.0-36.0); Mean Corpuscular Volume 66.3 fL (80.0-100.0); Monocytes # (auto) 0.4 10 ^3/uL (0-1.3); Monocytes % (auto) 12.4 % (0.0-12.0); Neutrophils % (auto) 56.8 % (37.0-80.0); Nucleated Red Blood Cells % 0.2 %; Red Cell Distribution Width 18.4 % (11.8-14.3)
[2023-03-17 18:24] LABS: Chloride 107 mmol/L (98-107); Sodium 136 mmol/L (136-145)
[2023-03-17 18:25] LABS: Calcium 9.3 mg/dL (8.5-10.1)
[2023-03-17 18:30] LABS: BUN/Creatinine Ratio 8.4 (10.0-20.0); Blood Urea Nitrogen 8 mg/dL (9-23); Glucose 122 mg/dL (74-106)
[2023-03-17 18:31] LABS: Anion Gap 6.5 (5-15); Carbon Dioxide 22.5 mmol/L (20-30)
[2023-03-17] MEDS: ATORVASTATIN 20 MG TAB PO SCH (22:49)
[2023-03-18] VITALS (7 sets, daily range): BP systolic 135–149; BP diastolic 96–106; PULSE 65–80; RESP 17–20; TEMP 97.3–97.6; O2SAT 95–98
[2023-03-18] MEDS: traMADol HCL 50 MG TAB PO PRN ×2 (05:43→21:33)
[2023-03-18] MEDS: ONDANSETRON HCL 4 MG/2 ML VIAL IV PRN (05:44)
[2023-03-18 06:06] LABS: Basophils # (auto) 0 10 ^3/uL (0-0.2); Eosinophils # (auto) 0 10 ^3/uL (0-0.8); Monocytes # (auto) 0.1 10 ^3/uL (0-1.3); White Blood Cell 2.4 10^3/uL (4.4-10.8)
[2023-03-18 06:09] LABS: Basophils % (auto) 0.1 % (0.0-2.0); Hematocrit 34.3 % (36.0-46.0); Hemoglobin 10.7 g/dL (12.2-16.2); Lymphocytes # (auto) 0.7 10 ^3/uL (0.4-5.4); Lymphocytes % (auto) 29.1 % (10.0-50.0); Mean Corpuscular Hemoglobin 20.9 pg (28.0-32.0); Mean Corpuscular Hgb Conc. 31.3 g/dL (32.0-36.0); Mean Corpuscular Volume 66.6 fL (80.0-100.0); Monocytes % (auto) 4.7 % (0.0-12.0); Neutrophils # (auto) 1.6 10 ^3/uL (1.6-8.6); Neutrophils % (auto) 66.1 % (37.0-80.0); Nucleated Red Blood Cells % 0.1 %; Red Blood Cells 5.14 10^6/uL (4.0-5.20); Red Cell Distribution Width 18.7 % (11.8-14.3)
[2023-03-18 07:40] LABS: Erythrocyte Sedimentation Rate 37 mm/hr (0-20)
[2023-03-18 07:49] LABS: Alanine Aminotransferase 92 U/L (7-40); Albumin 3.8 g/dL (3.2-4.8); Alkaline Phosphatase 109 U/L (46-116); Anion Gap 8.5 (5-15); Aspartate Aminotransferase 110 U/L (13-40); BUN/Creatinine Ratio 14.7 (10.0-20.0); Blood Urea Nitrogen 14 mg/dL (9-23); Calcium 9.4 mg/dL (8.5-10.1); Carbon Dioxide 19.5 mmol/L (20-30); Chloride 107 mmol/L (98-107); Glucose 174 mg/dL (74-106); Potassium 4.5 mmol/L (3.5-5.1); Sodium 135 mmol/L (136-145)
[2023-03-18 07:50] LABS: Total Protein 7.1 g/dL (5.7-8.2)
[2023-03-18 07:53] LABS: Bilirubin, Total 0.2 mg/dL (0.2-1.0)
[2023-03-18] MEDS: AZITHROMYCIN 500MG/ 250ML 250 ML IV SCH (09:08)
[2023-03-18] MEDS: cefTRIAXone 1GM/50ML D5W 50 ML IV SCH (09:08)
[2023-03-18] MEDS: COLCHICINE 0.6 MG CAP PO SCH (09:09)
[2023-03-18] MEDS: METOPROLOL TARTRATE 25 MG TAB PO SCH ×2 (09:09→21:34)
[2023-03-18] MEDS: ASPirin 81 mg TAB PO SCH (09:09)
[2023-03-18] MEDS: PANTOPRAZOLE 40 MG TAB PO SCH (09:19)
[2023-03-18] MEDS: predniSONE 20 MG TAB PO SCH (09:20)
[2023-03-19 05:00] VITALS: BP 146/101; PULSE 67; RESP 18; TEMP 97.5; O2SAT 97
[2023-03-19] MEDS: traMADol HCL 50 MG TAB PO PRN ×3 (05:46→21:07)
[2023-03-19 06:07] LABS: Basophils # (auto) 0 10 ^3/uL (0-0.2); Eosinophils # (auto) 0 10 ^3/uL (0-0.8); Hematocrit 31.5 % (36.0-46.0); Hemoglobin 10.1 g/dL (12.2-16.2); Lymphocytes # (auto) 1.3 10 ^3/uL (0.4-5.4); Mean Corpuscular Hgb Conc. 32.1 g/dL (32.0-36.0); Monocytes # (auto) 0.6 10 ^3/uL (0-1.3); White Blood Cell 10.3 10^3/uL (4.4-10.8)
[2023-03-19 06:09] LABS: Basophils % (auto) 0.1 % (0.0-2.0); Lymphocytes % (auto) 12.3 % (10.0-50.0); Mean Corpuscular Hemoglobin 21.3 pg (28.0-32.0); Mean Corpuscular Volume 66.3 fL (80.0-100.0); Monocytes % (auto) 5.9 % (0.0-12.0); Neutrophils # (auto) 8.4 10 ^3/uL (1.6-8.6); Neutrophils % (auto) 81.7 % (37.0-80.0); Nucleated Red Blood Cells % 0.2 %; Red Blood Cells 4.76 10^6/uL (4.0-5.20); Red Cell Distribution Width 18.2 % (11.8-14.3)
[2023-03-19 06:16] LABS: % Iron Saturation 10.5 % (15-50)
[2023-03-19 06:28] LABS: Alanine Aminotransferase 107 U/L (7-40); Albumin 3.7 g/dL (3.2-4.8); Alkaline Phosphatase 99 U/L (46-116); Anion Gap 7.9 (5-15); Aspartate Aminotransferase 128 U/L (13-40); BUN/Creatinine Ratio 13.5 (10.0-20.0); Bilirubin, Total 0.2 mg/dL (0.2-1.0); Blood Urea Nitrogen 17 mg/dL (9-23); Calcium 9.5 mg/dL (8.7-10.4); Carbon Dioxide 22.1 mmol/L (20-30); Chloride 108 mmol/L (98-107); Glucose 119 mg/dL (74-106); Potassium 4.1 mmol/L (3.5-5.1); Sodium 138 mmol/L (136-145)
[2023-03-19 07:23] LABS: CRP High Sensitivity 1.03 mg/dL (<1.0)
[2023-03-19 07:58] LABS: Erythrocyte Sedimentation Rate 5 mm/hr (0-20)
[2023-03-19 08:00] VITALS: BP 154/105; PULSE 66; PULSE 70; RESP 17; TEMP 97.8; O2SAT 95
[2023-03-19 08:45] VITALS: BP 154/105; PULSE 70; RESP 17; TEMP 97.8; O2SAT 95
[2023-03-19] MEDS: PANTOPRAZOLE 40 MG TAB PO SCH (09:53)
[2023-03-19] MEDS: cefTRIAXone 1GM/50ML D5W 50 ML IV SCH (09:53)
[2023-03-19] MEDS: AZITHROMYCIN 500MG/ 250ML 250 ML IV SCH (09:53)
[2023-03-19] MEDS: predniSONE 20 MG TAB PO SCH (09:54)
[2023-03-19] MEDS: COLCHICINE 0.6 MG CAP PO SCH (09:54)
[2023-03-19] MEDS: METOPROLOL TARTRATE 25 MG TAB PO SCH ×2 (09:54→21:07)
[2023-03-19] MEDS: amLODIPine BESYLATE 5 MG TAB PO SCH (09:54)
[2023-03-19] MEDS: FERROUS SULFATE 325mg EC TAB PO SCH (13:16)
[2023-03-19] MEDS: hydrALAZINE HCL 20 MG/ML VL IV PRN (13:17)
[2023-03-19] MEDS ORDERED: KETOROLAC TROMETH 30 MG/ML 1ML VIAL IV ONE (16:15)
[2023-03-19 17:00] VITALS: BP 127/86; PULSE 86; RESP 17; TEMP 97.9; O2SAT 96
[2023-03-19 20:00] VITALS: PULSE 83; RESP 18; O2SAT 95
[2023-03-19 22:00] VITALS: BP 143/98; PULSE 83; RESP 19; TEMP 98; O2SAT 98
[2023-03-20] VITALS (7 sets, daily range): BP systolic 114–153; BP diastolic 79–108; PULSE 74–83; RESP 15–20; TEMP 97.5–98.5; O2SAT 94–99
[2023-03-20] MEDS: traMADol HCL 50 MG TAB PO PRN ×2 (04:39→10:02)
[2023-03-20] MEDS: hydrALAZINE HCL 20 MG/ML VL IV PRN (04:40)
[2023-03-20 07:04] LABS: Basophils # (auto) 0 10 ^3/uL (0-0.2); Eosinophils # (auto) 0 10 ^3/uL (0-0.8); Hemoglobin 9.9 g/dL (12.2-16.2); Monocytes # (auto) 0.7 10 ^3/uL (0-1.3)
[2023-03-20 07:12] LABS: Alanine Aminotransferase 94 U/L (7-40); Albumin 3.8 g/dL (3.2-4.8); Alkaline Phosphatase 85 U/L (46-116); Anion Gap 8.5 (5-15); Aspartate Aminotransferase 58 U/L (13-40); BUN/Creatinine Ratio 14.6 (10.0-20.0); Basophils % (auto) 0.2 % (0.0-2.0); Bilirubin, Total 0.3 mg/dL (0.2-1.0); Blood Urea Nitrogen 15 mg/dL (9-23); Calcium 9.4 mg/dL (8.5-10.1); Carbon Dioxide 22.5 mmol/L (20-30); Chloride 106 mmol/L (98-107); Glucose 90 mg/dL (74-106); Hematocrit 30.4 % (36.0-46.0); Lymphocytes # (auto) 1.6 10 ^3/uL (0.4-5.4); Lymphocytes % (auto) 16.7 % (10.0-50.0); Mean Corpuscular Hemoglobin 21.8 pg (28.0-32.0); Mean Corpuscular Hgb Conc. 32.6 g/dL (32.0-36.0); Mean Corpuscular Volume 66.8 fL (80.0-100.0); Monocytes % (auto) 6.9 % (0.0-12.0); Neutrophils # (auto) 7.5 10 ^3/uL (1.6-8.6); Neutrophils % (auto) 76.2 % (37.0-80.0); Nucleated Red Blood Cells % 0.1 %; Potassium 3.7 mmol/L (3.5-5.1); Red Blood Cells 4.56 10^6/uL (4.0-5.20); Red Cell Distribution Width 18.6 % (11.8-14.3); Sodium 137 mmol/L (136-145); Total Protein 7.1 g/dL (5.7-8.2); White Blood Cell 9.8 10^3/uL (4.4-10.8)
[2023-03-20] MEDS: FERROUS SULFATE 325mg EC TAB PO SCH (09:58)
[2023-03-20] MEDS: amLODIPine BESYLATE 5 MG TAB PO SCH (09:58)
[2023-03-20] MEDS: PANTOPRAZOLE 40 MG TAB PO SCH (09:58)
[2023-03-20] MEDS: METOPROLOL TARTRATE 25 MG TAB PO SCH ×2 (09:59→22:09)
[2023-03-20] MEDS: AZITHROMYCIN 250 MG TAB PO SCH (09:59)
[2023-03-20] MEDS: COLCHICINE 0.6 MG CAP PO SCH (10:00)
[2023-03-20] MEDS: predniSONE 20 MG TAB PO SCH (10:00)
[2023-03-20] MEDS: cefTRIAXone 1GM/50ML D5W 50 ML IV SCH (10:00)
[2023-03-20] MEDS ORDERED: HCTZ 25 MG TAB PO ONE (16:30)
[2023-03-20] MEDS ORDERED: ENALAPRILAT 1.25 MG/ML-1ML VIAL IV PRN (16:30)
[2023-03-20 20:06] LABS: Coxsackie B-1 Ab 1:16 (Neg:<1:8); Coxsackie B-2 Ab 1:16 (Neg:<1:8); Coxsackie B-4 Ab 1:16 (Neg:<1:8); Coxsackie B-5 Ab 1:16 (Neg:<1:8); Coxsackie B-6 Ab 1:16 (Neg:<1:8)
[2023-03-20] MEDS ORDERED: TEMAZEPAM 15 MG CAP PO ONE (22:15)
[2023-03-21] VITALS (7 sets, daily range): BP systolic 121–150; BP diastolic 77–108; PULSE 66–83; RESP 15–22; TEMP 97.5–98.2; O2SAT 95–99
[2023-03-21 05:30] LABS: Basophils # (auto) 0 10 ^3/uL (0-0.2); Eosinophils # (auto) 0 10 ^3/uL (0-0.8); Mean Corpuscular Hgb Conc. 32.9 g/dL (32.0-36.0); Mean Corpuscular Volume 66.7 fL (80.0-100.0); Monocytes # (auto) 0.7 10 ^3/uL (0-1.3)
[2023-03-21 05:34] LABS: Basophils % (auto) 0.4 % (0.0-2.0); Eosinophils % (auto) 0.1 % (0.0-7.0); Hematocrit 32.2 % (36.0-46.0); Hemoglobin 10.6 g/dL (12.2-16.2); Lymphocytes # (auto) 1.5 10 ^3/uL (0.4-5.4); Lymphocytes % (auto) 14.5 % (10.0-50.0); Monocytes % (auto) 6.5 % (0.0-12.0); Neutrophils # (auto) 8.2 10 ^3/uL (1.6-8.6); Neutrophils % (auto) 78.5 % (37.0-80.0); Nucleated Red Blood Cells % 0.1 %; Red Blood Cells 4.83 10^6/uL (4.0-5.20); Red Cell Distribution Width 18.6 % (11.8-14.3); White Blood Cell 10.4 10^3/uL (4.4-10.8)
[2023-03-21 05:52] LABS: Alanine Aminotransferase 100 U/L (7-40); Albumin 3.9 g/dL (3.2-4.8); Alkaline Phosphatase 86 U/L (46-116); Anion Gap 7.4 (5-15); Aspartate Aminotransferase 60 U/L (13-40); Bilirubin, Total 0.3 mg/dL (0.2-1.0); Blood Urea Nitrogen 15 mg/dL (9-23); Calcium 9.6 mg/dL (8.5-10.1); Carbon Dioxide 23.6 mmol/L (20-30); Chloride 107 mmol/L (98-107); Glucose 98 mg/dL (74-106); Potassium 3.9 mmol/L (3.5-5.1); Sodium 138 mmol/L (136-145); Total Protein 7.3 g/dL (5.7-8.2)
[2023-03-21 07:07] LABS: Complement C3 181 mg/dL (82-167)
[2023-03-21] MEDS: COLCHICINE 0.6 MG CAP PO SCH (09:28)
[2023-03-21] MEDS: FERROUS SULFATE 325mg EC TAB PO SCH (09:29)
[2023-03-21] MEDS: predniSONE 20 MG TAB PO SCH (09:29)
[2023-03-21] MEDS: PANTOPRAZOLE 40 MG TAB PO SCH (09:29)
[2023-03-21] MEDS: AZITHROMYCIN 250 MG TAB PO SCH (09:29)
[2023-03-21] MEDS: METOPROLOL TARTRATE 25 MG TAB PO SCH ×2 (09:30→23:51)
[2023-03-21] MEDS: HCTZ 25 MG TAB PO SCH (09:30)
[2023-03-21] MEDS ORDERED: LISINOPRIL 10 MG TAB PO SCH (10:00)
[2023-03-21] MEDS ORDERED: LISINOPRIL 10 MG TAB PO ONE (14:00)
[2023-03-21] MEDS ORDERED: TEMAZEPAM 15 MG CAP PO ONE (23:00)
[2023-03-22 05:00] VITALS: BP 139/97; PULSE 65; RESP 20; TEMP 97.5; O2SAT 97
[2023-03-22 07:48] VITALS: PULSE 83; RESP 15; O2SAT 95
[2023-03-22 08:00] VITALS: PULSE 60
[2023-03-22 09:00] VITALS: BP 153/99; PULSE 79; RESP 18; TEMP 97.7; O2SAT 98
[2023-03-22] MEDS: FERROUS SULFATE 325mg EC TAB PO SCH (09:30)
[2023-03-22] MEDS: PANTOPRAZOLE 40 MG TAB PO SCH (09:30)
[2023-03-22] MEDS: HCTZ 25 MG TAB PO SCH (09:31)
[2023-03-22] MEDS: COLCHICINE 0.6 MG CAP PO SCH (09:31)
[2023-03-22] MEDS: METOPROLOL TARTRATE 25 MG TAB PO SCH (09:31)
[2023-03-22] MEDS ORDERED: predniSONE 20 MG TAB PO SCH (10:00)
[2023-03-22] MEDS ORDERED: LISINOPRIL 10 MG TAB PO SCH (10:00)
[2023-03-22 10:35] LABS: Basophils # (auto) 0 10 ^3/uL (0-0.2); Eosinophils # (auto) 0 10 ^3/uL (0-0.8)
[2023-03-22 10:37] LABS: Basophils % (auto) 0.3 % (0.0-2.0); Eosinophils % (auto) 0.3 % (0.0-7.0); Hematocrit 34.8 % (36.0-46.0); Hemoglobin 11.4 g/dL (12.2-16.2); Lymphocytes # (auto) 2.5 10 ^3/uL (0.4-5.4); Lymphocytes % (auto) 21.8 % (10.0-50.0); Mean Corpuscular Hemoglobin 21.9 pg (28.0-32.0); Mean Corpuscular Hgb Conc. 32.8 g/dL (32.0-36.0); Mean Corpuscular Volume 66.8 fL (80.0-100.0); Monocytes # (auto) 0.8 10 ^3/uL (0-1.3); Monocytes % (auto) 6.9 % (0.0-12.0); Neutrophils # (auto) 8.2 10 ^3/uL (1.6-8.6); Neutrophils % (auto) 70.7 % (37.0-80.0); Nucleated Red Blood Cells % 0.1 %; Red Blood Cells 5.21 10^6/uL (4.0-5.20); Red Cell Distribution Width 18.8 % (11.8-14.3); White Blood Cell 11.6 10^3/uL (4.4-10.8)
[2023-03-22 11:08] LABS: Chloride 104 mmol/L (98-107); Potassium 3.4 mmol/L (3.5-5.1); Sodium 137 mmol/L (136-145)
[2023-03-22 11:09] LABS: Anion Gap 5 (5-15); Calcium 10.3 mg/dL (8.7-10.4); Carbon Dioxide 28 mmol/L (20-30)
[2023-03-22 11:14] LABS: BUN/Creatinine Ratio 14.8 (10.0-20.0); Blood Urea Nitrogen 16 mg/dL (9-23); Glucose 81 mg/dL (74-106)
[2023-03-22 11:53] LABS: Hypochromia Slight; Ovalocytes FEW
[2023-03-22 11:54] LABS: Target Cell FEW
[2023-03-22 12:07] LABS: Anticardiolipin IgG Antibody <9 GPL U/mL (0-14); Anticardiolipin IgM Antibody <9 MPL U/mL (0-12)
[2023-03-22] MEDS ORDERED: LISI10TA34 PO (12:27)
[2023-03-22] MEDS ORDERED: MET25T PO (12:27)
[2023-03-22] MEDS ORDERED: HYDR25TA5 PO (12:27)
[2023-03-22] MEDS ORDERED: PANT40T PO (12:27)
[2023-03-22] MEDS ORDERED: COLC0.6T56 PO (12:27)
[2023-03-22 12:41] LABS: Platelet Estimate Adequate
[2023-03-22 13:00] VITALS: BP 142/104; PULSE 74; RESP 18; TEMP 98.8; O2SAT 96
[2023-03-22 13:27] VITALS: BP 153/99; PULSE 79; TEMP 36.5
[2023-03-22 14:06] LABS: PTT-LA 31.4 sec (0.0-43.5); Thrombin Time 18.2 sec (0.0-23.0); dPT Confirm Ratio 1.03 Ratio (0.00-1.34); dRVVT 34.8 sec (0.0-47.0)
[2023-03-22 15:07] LABS: Lupus Interpretation Comment: (.)
== END 2023-03-22 15:57 | disposition home or self-care (01) | DRG 871 ==
LOC: ER 11:46 → TELE 13:53 → TELE-WESTW 23:22
PROVIDERS: ADMIT Internal Medicine
PROC: 4A023N7 Measurement of Cardiac Sampling and Pressure, Left Heart, Percutaneous Approach (ICD-10-PCS; principal; 2023-03-14)
PROC: B211YZZ Fluoroscopy of Multiple Coronary Arteries using Other Contrast (ICD-10-PCS; 2023-03-14)
PROC: B215YZZ Fluoroscopy of Left Heart using Other Contrast (ICD-10-PCS; 2023-03-14)
DX: A41.9 Sepsis, unspecified organism (principal); I21.4 Non-ST elevation (NSTEMI) myocardial infarction; I40.0 Infective myocarditis; I50.41 Acute combined systolic (congestive) and diastolic (congestive) heart failure; N17.9 Acute kidney failure, unspecified; I13.0 Hypertensive heart and chronic kidney disease with heart failure and stage 1 through stage 4 chronic kidney disease, or unspecified chronic kidney disease; E87.6 Hypokalemia; E78.5 Hyperlipidemia, unspecified; N18.9 Chronic kidney disease, unspecified; D64.9 Anemia, unspecified; E66.9 Obesity, unspecified; Z20.822 Contact with and (suspected) exposure to COVID-19; Z68.30 Body mass index [BMI] 30.0-30.9, adult; Z79.82 Long term (current) use of aspirin; Z79.899 Other long term (current) drug therapy; Z86.16 Personal history of COVID-19; Z80.0 Family history of malignant neoplasm of digestive organs; Z83.3 Family history of diabetes mellitus
CPT/HCPCS: 36415; 70450; 71045; 71275; 74177; 76705; 80048; 80053; 80061; 80307; 81001; 82728; 83021; 83036; 83516; 83540; 83550; 83735; 83880; 83930; 84443; 84484; 84702; 85007; 85025; 85027; 85379; 85610; 85613; 85652; 85660; 85670; 85705; 85730; 85732; 86141; 86147; 86160; 86225; 86235; 86658; 86880; 87040; 87426; 93005; 93306; 99152; 99291; C9113; G0378; J0696; J1885; J2250; J2405; Q9967

== ENCOUNTER 2023-04-03 16:12 | Emergency (ER) | payer BC, MEDICAID ==
[~2023-04-03] VITALS: Ht 167.6 cm; Wt 77.7 kg
[2023-04-03 16:12] VITALS: BP 114/83; RESP 20; O2SAT 97
[~2023-04-03 16:12] MED LIST changes: +COLC0.6T56 PO; +HYDR25TA5 PO; +LISI10TA34 PO; +MET25T PO; +PANT40T PO
[2023-04-03 16:17] VITALS: PULSE 82
[2023-04-03 16:49] LABS: Basophils # (auto) 0 10 ^3/uL (0-0.2); Basophils % (auto) 0.2 % (0.0-2.0); Eosinophils # (auto) 0 10 ^3/uL (0-0.8); Hematocrit 36.3 % (36.0-46.0); Hemoglobin 11.8 g/dL (12.2-16.2); Lymphocytes % (auto) 10.1 % (10.0-50.0); Mean Corpuscular Hemoglobin 22.4 pg (28.0-32.0); Mean Corpuscular Hgb Conc. 32.4 g/dL (32.0-36.0); Mean Corpuscular Volume 69.3 fL (80.0-100.0); Monocytes # (auto) 0.4 10 ^3/uL (0-1.3); Monocytes % (auto) 3.5 % (0.0-12.0); Neutrophils # (auto) 8.9 10 ^3/uL (1.6-8.6); Neutrophils % (auto) 86.2 % (37.0-80.0); Red Blood Cells 5.24 10^6/uL (4.0-5.20); White Blood Cell 10.3 10^3/uL (4.4-10.8)
[2023-04-03 16:50] LABS: Red Cell Distribution Width 21.9 % (11.8-14.3)
[2023-04-03 17:05] LABS: Alanine Aminotransferase 68 U/L (7-40); Albumin 4.8 g/dL (3.2-4.8); Alkaline Phosphatase 97 U/L (46-116); Anion Gap 6 (5-15); Aspartate Aminotransferase 21 U/L (13-40); BUN/Creatinine Ratio 21.8 (10.0-20.0); Bilirubin, Total 0.4 mg/dL (0.2-1.0); Blood Urea Nitrogen 26 mg/dL (9-23); Calcium 10.5 mg/dL (8.7-10.4); Carbon Dioxide 25 mmol/L (20-30); Chloride 104 mmol/L (98-107); Glucose 132 mg/dL (74-106); Potassium 4.4 mmol/L (3.5-5.1); Sodium 135 mmol/L (136-145); Total Protein 8.2 g/dL (5.7-8.2)
[2023-04-03 17:18] LABS: Platelet Estimate Adequate
[2023-04-03 17:19] LABS: Anisocytosis Slight; Hypochromia Moderate; Ovalocytes FEW; Tear Drop Cells FEW
[2023-04-03 19:25] LABS: Urine Bacteria FEW /hpf (None Seen); Urine Blood Negative /uL (Negative); Urine Clarity Clear (Clear); Urine Color Colorless (Yellow); Urine Hyaline Cast FEW /lpf (0 - 2); Urine Protein, UAD Negative (Negative); Urine Specific Gravity 1.015 (1.001-1.035); Urine Urobilinogen Normal (Negative); Urine WBC 2 /hpf (0 - 5)
== END 2023-04-03 17:20 | disposition left against medical advice (07) ==
LOC: ER 16:12
DX: R07.89 Other chest pain (principal); R06.02 Shortness of breath; Z53.21 Procedure and treatment not carried out due to patient leaving prior to being seen by health care provider
CPT/HCPCS: 36415; 80053; 81001; 84484; 85025; 93005

== ENCOUNTER → 2023-05-03 | Outpatient (CLI) | payer BC, MEDICAID | END | disposition home or self-care (01) | LOC: XYW 08:27 | PROVIDERS: ATTEND Internal Medicine | DX: I34.0 Nonrheumatic mitral (valve) insufficiency (principal); I40.8 Other acute myocarditis | CPT/HCPCS: 93306 ==

== ENCOUNTER 2023-09-19 05:09 | Observation (INO) | payer OTHER, MEDICAID ==
[~2023-09-19] VITALS: Ht 167.6 cm; Wt 84.1 kg
[2023-09-19 05:47] LABS: Basophils # (auto) 0 10 ^3/uL (0-0.2); Basophils % (auto) 0.7 % (0.0-2.0); Eosinophils # (auto) 0 10 ^3/uL (0-0.8); Lymphocytes # (auto) 0.8 10 ^3/uL (0.4-5.4); Monocytes # (auto) 0.4 10 ^3/uL (0-1.3)
[2023-09-19 05:52] LABS: Hematocrit 33.2 % (36.0-46.0); Hemoglobin 10.6 g/dL (12.2-16.2); Lymphocytes % (auto) 18.7 % (10.0-50.0); Mean Corpuscular Hemoglobin 21.2 pg (28.0-32.0); Mean Corpuscular Hgb Conc. 32.1 g/dL (32.0-36.0); Mean Corpuscular Volume 66.1 fL (80.0-100.0); Monocytes % (auto) 9.8 % (0.0-12.0); Neutrophils # (auto) 2.9 10 ^3/uL (1.6-8.6); Neutrophils % (auto) 70.8 % (37.0-80.0); Red Blood Cells 5.02 10^6/uL (4.0-5.20); White Blood Cell 4.1 10^3/uL (4.4-10.8)
[2023-09-19 05:56] LABS: Red Cell Distribution Width 20.2 % (11.8-14.3)
[2023-09-19 06:06] LABS: Alanine Aminotransferase 35 U/L (7-40); Albumin 4.2 g/dL (3.2-4.8); Alkaline Phosphatase 77 U/L (46-116); Anion Gap 9 (5-15); Aspartate Aminotransferase 24 U/L (13-40); BUN/Creatinine Ratio 8.7 (10.0-20.0); Blood Urea Nitrogen 9 mg/dL (9-23); Calcium 9.7 mg/dL (8.7-10.4); Carbon Dioxide 25 mmol/L (20-30); Chloride 101 mmol/L (98-107); Glucose 103 mg/dL (74-106); Sodium 135 mmol/L (136-145)
[2023-09-19 06:07] LABS: Bilirubin, Total 0.4 mg/dL (0.2-1.0); Total Protein 7.3 g/dL (5.7-8.2)
[2023-09-19 06:34] LABS: Platelet Estimate Adequate
[2023-09-19 06:35] LABS: Anisocytosis Slight; Hypochromia Moderate; Stomatocytes Few; Tear Drop Cells FEW
[2023-09-19] MEDS: IOHEXOL 350 MG/ML 100ML IJ ONE (09:31)
[2023-09-19 10:00] VITALS: PULSE 98; RESP 20; O2SAT 100
[2023-09-19] MEDS: METOPROLOL TARTRATE 25 MG TAB PO SCH (10:00)
[2023-09-19] MEDS: LISINOPRIL 20 MG TAB PO SCH (10:00)
[2023-09-19] MEDS: cloNIDine HCL 0.1 MG TAB PO ONE (10:10)
[2023-09-19 10:27] LABS: Urine Bacteria NONE SEEN /hpf (None Seen); Urine Blood Negative /uL (Negative); Urine Clarity Clear (Clear); Urine Hyaline Cast FEW /lpf (0 - 2); Urine Mucus FEW (None Seen); Urine Protein, UAD Negative (Negative); Urine Specific Gravity 1.017 (1.001-1.035); Urine Urobilinogen Normal (Negative); Urine WBC <1 /hpf (0 - 5); Urine pH 5.5 (5.0-8.0)
[2023-09-19 10:28] LABS: Urine Color Straw (Yellow)
[2023-09-19] MEDS: POTASSIUM CHL 20 Meq TABLET PO ONE (11:47)
[2023-09-19] MEDS: ASPirin 325 MG TAB PO ONE (11:47)
[2023-09-19] MEDS: ENOXAPARIN SOD 80 MG/0.8ML SYRINGE SC ONE (11:47)
[2023-09-19] MEDS: PANTOPRAZOLE 40 MG TAB PO SCH (11:47)
[2023-09-19] MEDS ORDERED: HYDROcodone-ACET 5/325MG TAB PO PRN (15:00)
[2023-09-19] MEDS: ACETAMINOPHEN 325 MG TAB PO PRN (17:27)
[2023-09-19 18:44] VITALS: BP 139/89; PULSE 103; RESP 20; TEMP 99.8; O2SAT 97
== END 2023-09-20 19:32 | disposition home or self-care (01) ==
LOC: EEVIPCON 05:09 → ER 05:09 → TELE 15:01
PROVIDERS: ADMIT Internal Medicine; ATTEND Internal Medicine
DX: I11.0 Hypertensive heart disease with heart failure (principal); I50.32 Chronic diastolic (congestive) heart failure; E87.6 Hypokalemia; R79.89 Other specified abnormal findings of blood chemistry; I25.2 Old myocardial infarction; I24.9 Acute ischemic heart disease, unspecified; Z79.899 Other long term (current) drug therapy
CPT/HCPCS: 36415; 71045; 71275; 80053; 81001; 81025; 83880; 84484; 84702; 85025; 85379; 93005; 93306; 93970; 96372; 99285; G0378; J1650; Q9967

== ENCOUNTER 2025-03-21 09:55 | Emergency (ER) | payer OTHER, MEDICAID ==
[~2025-03-21] VITALS: Ht 167.6 cm; Wt 84.0 kg
[~2025-03-21 09:55] MED LIST changes: -AMLO1TAB23 PO; -ATEN25TA PO; -COLC0.6T56 PO; -HYDR25TA5 PO; -LISI40TA16 PO; -MET25T PO; -MULT-1018 PO; -PANT40T PO
[2025-03-21 09:58] VITALS: BP 154/124; RESP 18; TEMP 98.1; O2SAT 100
[2025-03-21 10:04] VITALS: PULSE 101
--- NOTE | 2025-03-21 10:39 | ED.PDOC ---
History of Present Illness HPI Comments This is a 50 year-old female, with a PMHX of Lupus, HTN, and NH, who presents to the ED with a chief complaint of chest pain, fever, and body aches as of X1 week ago. Pt additionally reports X1 episode of emesis this morning after taking Prednisone medication. Patient suspects her chest pain is due to an increase of blood pressure and her fathers which occurred X1 week ago. Pt reports chest pain since. Patient states she takes Lisinopril, Hydrochlorothiazide, and Prednisone medications daily, as prescribed. Patient has no further complaints at this time and otherwise denies cough, palpitations, N/D, chills, headache, or general weakness. Chief Complaint: Body Pain Time Seen by MD: 10:23 Primary Care Provider: MAIRA Feng Notes: Nurses Notes, Medications, Allergies Allergies: Coded Allergies: NO KNOWN ALLERGIES (Unverified , 11/16/17) Home Meds Active Scripts Lisinopril (Lisinopril) 10 Mg Tab, 20 MG PO DAILY for 30 Days, #60 TAB 3 Refills Prov:MARII JACKSON MD 03/22/23 Reported Medications Hctz (Hydrochlorothiazide) 25 Mg Tab, 25 MG GT DAILY, TAB 03/14/21 Information Source: Patient Mode of Arrival: Ambulatory Severity: Moderate Timing: Days Duration: Since onset Prehospital treatment: None Past Medical History PAST MEDICAL HISTORY: HTN, NH Past Medical History (Other): Lupus Surgical History: BTL, 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 History Family History Family History: Reviewed,noncontributory to illness, Family hx of DM, Family hx of Cancer Social History Smoker: Non-Smoker Alcohol: Denies ETOH Use Drugs: Denies Drug Use Lives In: Home Constitutional: reports: fever, others (body aches ); denies: chills, diaphoresis, fatigue, malaise, sweats, weakness EENTM: denies: blurred vision, double vision, ear bleeding, ear discharge, ear drainage, ear pain, ear ringing, eye pain, eye redness, hearing loss, mouth pain, mouth swelling, nasal discharge, nose bleeding, nose congestion, nose pain, photophobia, tearing, throat pain, throat swelling, voice changes, others Respiratory: denies: cough, hemoptysis, orthopnea, SOB at rest, shortness of breath, SOB with excertion, stridor, wheezing, others Cardiovascular: reports: chest pain; denies: dizzy spells, diaphoresis, Dyspnea on exertion, edema, irregular heart beat, left arm pain, lightheadedness, palpitations, PND, syncope, others Gastrointestinal: reports: vomiting; denies: abdomen distended, abdominal pain, blood streaked bowels, constipated, diarrhea, dysphagia, difficulty swallowing, hematemesis, melena, nausea, poor appetite, poor fluid intake, rectal bleeding, rectal pain, others Genitourinary: denies: abnormal vagina bleeding, burning, dyspareunia, dysuria, flank pain, frequency, hematuria, incontinence, pain, , vagina discharge, urgency, others Neurological: denies: dizziness, fainting, headache, left sided numbness, left sided weakness, numbness, paresthesia, pre-existing deficit, right sided numbness, right sided weakness, seizure, speech problems, tingling, tremors, weakness, others Musculoskeletal: denies: back pain, gout, joint pain, joint swelling, muscle pain, muscle stiffness, neck pain, others Integumetry: denies: bruises, change in color, change in hair/nails, dryness, laceration, lesions, lumps, rash, wounds, others Allergic/Immunocompromised: denies: Difficulty Healing, Frequent Infections, Hives, Itching, others Hematologic/Lymphatic: denies: anemia, blood clots, easy bleeding, easy bruising, swollen glands, others Endocrine: denies: excessive hunger, excessive sweating, excessive thirst, excessive urination, flushing, intolerance to cold, intolerance to heat, unexplained weight gain, unexplained weight loss, others Psychiatric: denies: anxiety, bipolar disorder, depression, hopeless, panic disorder, schizophrenia, sleepless, suicidal, others All Other Systems: Reviewed and Negative Physical Exam General Appearance: Moderate Distress HEENT: Normal ENT Inspection, Pharynx Normal, TMs Normal Neck: Full Range of Motion, Non-Tender, Normal, Normal Inspection Respiratory: Chest Non-Tender, Lungs Clear, No Accessory Muscle Use, No Respiratory Distress, Normal Breath Sounds Cardiovascular: No Edema, No JVD, No Murmur, No Gallop, Normal Peripheral Pulses, Regular Rate/Rhythm Breast Exam: Deferred Gastrointestinal: No Organomegaly, Non Tender, No Pulsatile Mass, Normal Bowel Sounds, Soft Genitalia: Deferred Pelvic: Deferred Rectal: Deferred Extremities: No calf tenderness, Normal capillary refill, Normal inspection, Normal range of motion, Non-tender, No pedal edema Musculoskeletal : Apperance: Normal Neurologic: Alert, 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 Was a procedure done?: No Differential Dx Considerations may include: HTN, COVID-19, Anxiety, Palpitations X-Ray, Labs, Meds, VS Vital Signs Date Time Temp Pulse Resp B/P (MAP) Pulse Ox O2 Delivery O2 Flow Rate FiO2 03/21/25 13:11 99/71 03/21/25 11:01 154/124 03/21/25 10:04 101 03/21/25 09:58 98.1 179 18 120/ 100 98.1 154/124 Lab Test 03/21/25 11:42 03/21/25 10:40 Range/Units Troponin I High Sensitivity 3 L 4 </=34 ng/L White Blood Count 8.8 4.4-10.8 10^3/uL Red Blood Count 5.63 H 4.0-5.20 10^6/uL Hemoglobin 11.1 L 12.2-16.2 g/dL Hematocrit 34.5 L 36.0-46.0 % Mean Corpuscular Volume 61.4 L 80.0-100.0 fL Mean Corpuscular Hemoglobin 19.8 L 28.0-32.0 pg Mean Corpuscular Hemoglobin Concent 32.2 32.0-36.0 g/dL Red Cell Distribution Width 20.8 H 11.8-14.3 % Platelet Count 273 140-450 10^3/uL Mean Platelet Volume 9.0 6.9-10.8 fL Neutrophils (%) (Auto) 87.1 H 37.0-80.0 % Lymphocytes (%) (Auto) 8.9 L 10.0-50.0 % Monocytes (%) (Auto) 3.6 0.0-12.0 % Eosinophils (%) (Auto) 0.0 0.0-7.0 % Basophils (%) (Auto) 0.4 0.0-2.0 % Neutrophils # (Auto) 7.6 1.6-8.6 10 ^3/uL Lymphocytes # (Auto) 0.8 0.4-5.4 10 ^3/uL Monocytes # (Auto) 0.3 0-1.3 10 ^3/uL Eosinophils # (Auto) 0 0-0.8 10 ^3/uL Basophils # (Auto) 0 0-0.2 10 ^3/uL Nucleated Red Blood Cells 0.0 % Reticulocyte Count (auto) 1.11 0.5-1.5 % Sodium Level 139 136-145 mmol/L Potassium Level 3.6 3.5-5.1 mmol/L Chloride Level 106 98-107 mmol/L Carbon Dioxide Level 24 20-31 mmol/L Anion Gap 9 5-15 Blood Urea Nitrogen 9 9-23 mg/dL Creatinine 1.02 0.550-1.02 mg/dL Glomerular Filtration Rate Calc 67 >90 mL/min BUN/Creatinine Ratio 8.8 L 10.0-20.0 Serum Glucose 103 74-106 mg/dL Calcium Level 9.9 8.7-10.4 mg/dL Current Medications Medications (Trade) Dose Ordered Sig/Sarah Route Start Time Stop Time Status Last Admin Clonidine HCl (Catapres Tablet) 0.2 mg ONCE ONCE PO 03/21/25 10:15 03/21/25 10:16 DC 03/21/25 11:01 Acetaminophen/ Hydrocodone Bitart ([place] 5/325MG Tab) 1 tab ONCE ONCE PO 03/21/25 11:15 03/21/25 11:16 DC 03/21/25 11:12 Patient alert. Came in because of chest discomfort. Blood pressure elevated. Vitals stable. Answering all questions. Recently lost a loved one. She has been under lot of stress. Was given [place]. Was given clonidine. EKG reviewed does not show any acute changes. WBC within normal limits. Reticulocyte count within normal limits. No acute process. Explained to the patient. Was told to follow up with her primary care physician. Was told to come back if there is any problem. Images Reviewed?: Images reviewed and evaluated by me Time of 1ST Reevaluation: 11:04 Reevaluation 1ST: Unchanged Patient Education/Counseling: Diagnosis, Treatment Family Education/Counseling: No Family Present Medical Screening: No EMC Exist At This Time SEPSIS Sepsis Screen Date sepsis recognized/suspect: Mar 21, 2025 Time Sepsis recognized/suspect: 0955 Recent Procedure: No On Antibiotic Therapy: No Respiratory Rate >20: No Heart Rate >90: Yes Temp<36 C (96.8 F) or >38.3 C: No SBP <90 or MAP <65 mmHG: No New Acute Mental Status Change: No Is the patient on CPAP, BIPAP,: No Physician Orders Urinalysis (03/21/25 10:30) Vital Signs Date Time Temp Pulse Resp B/P (MAP) Pulse Ox O2 Delivery O2 Flow Rate FiO2 03/21/25 13:11 99/71 03/21/25 11:01 154/124 03/21/25 10:04 101 03/21/25 09:58 98.1 179 18 120/ 100 98.1 154/124 Laboratory Tests Test 03/21/25 10:40 White Blood Count 8.8 10^3/uL (4.4-10.8) Medications Medications Dose Ordered Sig/Sarah Route Start Time Stop Time Status Last Admin Dose Admin Acetaminophen/ Hydrocodone Bitart 1 tab ONCE ONCE PO 03/21/25 11:15 03/21/25 11:16 DC 03/21/25 11:12 Clonidine HCl 0.2 mg ONCE ONCE PO 03/21/25 10:15 03/21/25 10:16 DC 03/21/25 11:01 Departure 1 Departure Time of Disposition: 13:40 Impression: Primary Impression: Hypertensive urgency Disposition: 01 HOME / SELF CARE / HOMELESS Condition: Good Discharged With: Self Critical Care Note Critical Care Time?: No Stability Stability form required: No Heart Score Heart Score: Heart Score Response (Comments) Value History Slightly Suspicious 0 EKG Normal 0 Age 45-64 1 Risk Factors No known risk factors 0 Troponin Normal limit 0 Total 1 I personally scribed for MESFIN LEE MD ([email or web address]) on 03/21/25 at 10:39. Electronically submitted by Nancy Rosas ([email or web address]). MESFIN LEE MD Mar 21, 2025 10:39
--- NOTE | 2025-03-21 10:48 | ECG ---
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
[2025-03-21 11:08] LABS: Hematocrit 34.5 % (36.0-46.0); Hemoglobin 11.1 g/dL (12.2-16.2); Mean Corpuscular Hemoglobin 19.8 pg (28.0-32.0); Mean Corpuscular Volume 61.4 fL (80.0-100.0); Nucleated Red Blood Cells % 0.0 %
[2025-03-21] MEDS: HYDROcodone-ACET 5/325MG TAB PO ONE (11:12)
[2025-03-21 11:17] LABS: Chloride 106 mmol/L (98-107); Potassium 3.6 mmol/L (3.5-5.1); Sodium 139 mmol/L (136-145)
[2025-03-21 11:18] LABS: Anion Gap 9 (5-15); Calcium 9.9 mg/dL (8.7-10.4); Carbon Dioxide 24 mmol/L (20-31)
[2025-03-21 11:23] LABS: BUN/Creatinine Ratio 8.8 (10.0-20.0); Glucose 103 mg/dL (74-106)
[2025-03-21 11:26] LABS: Blood Urea Nitrogen 9 mg/dL (9-23)
== END 2025-03-21 13:38 | disposition left against medical advice (07) ==
LOC: ER 09:55
DX: I16.0 Hypertensive urgency (principal); Z79.899 Other long term (current) drug therapy; Z98.51 Tubal ligation status
CPT/HCPCS: 36415; 80048; 84484; 85025; 85045; 93005